=== PATIENT | male | born 1955 | race Caucasian/White ===

== ENCOUNTER → 2017-02-06 | Outpatient (CLI) | payer BC | LOC: MW.NPFI 08:16 | PROVIDERS: ATTEND Nurse Practitioner | DX: M25.562 Pain in left knee (principal) | CPT/HCPCS: 36415; 85025; 85652; 86140 ==

== ENCOUNTER → 2017-02-14 | Outpatient (CLI) | payer BC ==
--- NOTE | 2017-02-14 16:10 | CR ---
EXAMINATION: Left knee HISTORY: Pain COMPARISON: None TECHNIQUE: 4 views FINDINGS/IMPRESSION: There is no acute osseous abnormality, dislocation, or fracture identified. Bon e mineralization appears normal without an underlying joint effusion. Moderate chondrocalcinosis is noted, likely CPPD.
== END ==
LOC: MW.CHORTHO 08:00
PROVIDERS: ATTEND Physician Assistant
DX: M25.562 Pain in left knee (principal); M11.252 Other chondrocalcinosis, left hip
CPT/HCPCS: 73564-26-LT; 73564-LT

== ENCOUNTER 2023-10-06 19:11 | Emergency (ER) | payer BC, OTHER ==
[2023-10-06] MEDS ORDERED: Diphtheria,Pertussis(Acell),Tetanus Vaccine 0.5 ML Syringe IM ONE (19:48)
[2023-10-06] MEDS ORDERED: traMADol 50 MG Tab PO ONE (19:48)
[2023-10-06] MEDS ORDERED: Bacitracin Oint 1 GM U/D Packet TOP ONE (19:48)
[2023-10-06] MEDS ORDERED: Ibuprofen 600 MG Tab PO ONE (19:48)
== END 2023-10-06 20:12 | disposition home or self-care (01) ==
LOC: MW.ED 19:11
DX: T25.222A Burn of second degree of left foot, initial encounter (principal); T31.0 Burns involving less than 10% of body surface; Z23 Encounter for immunization; X12.XXXA Contact with other hot fluids, initial encounter
CPT/HCPCS: 16020; 90471; 90715; 99283; A9270